=== PATIENT | female | born 1985 | race Caucasian/White ===

== ENCOUNTER → 2018-01-02 09:53 | Outpatient (CLI) | payer OTHER, SELFPAY ==
[2018-01-02 13:51] LABS: Basophils % 0.9 % (0.1-2.0); Eosinophils # 0.3 K/mm3 (0.0-0.4); Hematocrit 40.8 % (37.0-47.0); Hemoglobin 12.4 g/dL (12.2-16.2); Lymphocytes # 1.4 K/mm3 (0.7-4.5); Lymphocytes % 29.6 K/mm3 (10-50); Mean Corpuscular HGB Conc 30.4 g/dL (31.8-35.4); Mean Corpuscular Hemoglobin 27.7 pg (27.0-31.2); Mean Platelet Volume 7.6 fl (7.4-10.4); Monocytes # 0.3 K/mm3 (0.1-1.0); Monocytes % 6.9 % (1.7-9.3); Neutrophils # 2.7 K/mm3 (1.8-7.8); Neutrophils % 55.7 % (37.0-80.0); Platelet Count 297 K/mm3 (142-424); Red Blood Count 4.48 M/mm3 (4.20-5.40); Red Cell Distribution Width 13.7 % (11.5-17.5); White Blood Count 4.8 K/mm3 (4.8-10.8)
[2018-01-02 15:09] LABS: Erythrocyte Sedimentation Rate 10 mm/hr (0-20)
[2018-01-02 15:15] LABS: Alanine Aminotransferase 41 U/L (12-78); Albumin Level 4.2 gm/dL (3.4-5.0); Albumin/Globulin Ratio 1.2 (1.1-1.8); Alkaline Phosphatase 43 U/L (46-116); Anion Gap 16.1 mEq/L (5-15); Aspartate Amino Transferase 24 U/L (15-37); Bilirubin,Total 0.1 mg/dL (0.2-1.0); Blood Urea Nitrogen 12 mg/dL (7-18); Calcium 8.8 mg/dL (8.5-10.1); Carbon Dioxide 25 mmol/L (21.0-32.0); Chloride 103 mmol/L (98-107); Chol/HDL Ratio 2.8 (1-3.5); Cholesterol 186 mg/dL (140-200); Creatinine,Serum 0.78 mg/dL (0.55-1.02); Estimated Glomerular Filt Rate 86 ml/min (>60); GFR (African American) 104 ML/MIN (>60); Globulin 3.6 gm/dl (1.3-3.2); Glucose 82 mg/dL (74-106); HDL Cholesterol 66 mg/dL (29-89); LDL Cholesterol 104 mg/dL (0-130); Potassium 4.1 mmoL/L (3.5-5.1); Sodium 140 mmol/L (136-145); T4 (Thyroxine) 7.7 ug/dl (4.7-13.3); Thyroid Stimulating Hormone 1.48 uIU/ml (0.358-3.740); Total Protein,Serum 7.8 gm/dL (6.4-8.2); Triglycerides 81 mg/dL (30-200); VLDL Cholesterol 16 mg/dL (0-40)
[2018-01-02 15:16] LABS: C-Reactive Protein < 0.2 mg/L (0.0-0.9)
[2018-01-03 08:26] LABS: RA Latex Turbid. <10.0 IU/mL (0.0-13.9)
[2018-01-03 18:31] LABS: Vitamin D 25 Hydroxy 27.9 ng/mL (30.0-100.0)
[2018-01-05 12:32] LABS: Anti-Jo-1 <0.2 AI (0.0-0.9); Anti-Smith Antibody <0.2 AI (0.0-0.9); Antichromatin Antibodies <0.2 AI (0.0-0.9); Antiscleroderma-70 Antibodies <0.2 AI (0.0-0.9); RNP Antibodies <0.2 AI (0.0-0.9); Sjogren's Anti-SS-A <0.2 AI (0.0-0.9); Sjogren's Anti-SS-B <0.2 AI (0.0-0.9)
[2018-01-06 06:24] LABS: Anti-Centromere B Antibodies <0.2 AI (0.0-0.9); Anti-DNA (DS) Ab Qn 1 IU/mL (0-9)
== END ==
PROVIDERS: Visit Provider Nurse Practitioner Family
DX: R25.2 Cramp and spasm (principal); Z13.220 Encounter for screening for lipoid disorders
CPT/HCPCS: 80053; 80061; 82652; 84436; 84443; 85025; 85651; 86038; 86140; 86431

== ENCOUNTER → 2019-01-15 11:25 | Outpatient (CLI) | payer BC, SELFPAY | PROVIDERS: Visit Provider Nurse Practitioner Family | DX: R39.89 Other symptoms and signs involving the genitourinary system (principal) | CPT/HCPCS: 87086 ==

== ENCOUNTER → 2019-02-05 15:13 | Outpatient (CLI) | payer BC, SELFPAY ==
--- NOTE | 2019-02-05 15:15 | US_ITS ---
US transvaginal Ordering Physician: Chaz Desouza APRN Patient Age: 33 years: Female HISTORY: ITS.REASON: right adnexal cyst seen on CT right-sided back pain. Recent CT [place] showed ovarian cysts Right-sided back pain . TECHNIQUE: Transvaginal pelvic ultrasound COMPARISON :None at this facility FINDINGS Retroverted retroflexed uterus. Uterus measures 7.8 cm length as 1.5 cm has 5.3 cm wide. Endometrium measures up to 1.1 cm thickness. Previous no focal mass or fibroid within uterus. Ovaries appear within normal limits, with small follicles bilaterally. Most prominent follicles measuring over 6 mm size. No dominant cyst in either ovary.. However there is some fluid at the cul-de-sac most evident just adjacent to the right right ovary. Possible reflects a recent rupture of cyst seen on CT. Right ovary measures 3.6 cm x 1.85 cm x 2.1 cm.. Left ovary.. 2.6 cm x 1.1 cm x 1 cm. Cul-de-sac fluid noted. Reflect recent cyst rupture. IMPRESSION: 1. Retroverted retroflexed uterus. Normal size. Slight Generous Endometrial stripe 1.1 cm. 2. Ovaries appear normal in size with small follicles bilaterally. None measuring over 6 mm size. Right ovary is larger than left Measures 3.6 cm. 3.There is a small amount of fluid in the cul-de-sac to most evident to the right. This could reflect rupture of the cyst seen on recent CT.
== END ==
PROVIDERS: PCP Nurse Practitioner Family; Visit Provider Nurse Practitioner Family
DX: N94.9 Unspecified condition associated with female genital organs and menstrual cycle (principal)
CPT/HCPCS: 76830

== ENCOUNTER 2020-10-20 12:21 | Emergency (ER) | payer BC, SELFPAY ==
[2020-10-20 13:08] VITALS: BP 138/98; PULSE 63; RESP 16; TEMP 37.3; O2SAT 100; BMI 27.8
--- NOTE | 2020-10-20 13:16 | HMH.EDUTC ---
[facility] [place] Clinical Impression: Encounter for laboratory testing for COVID-19 virus Disposition: Home, Self-Care Condition on Discharge: Good Instructions: DI for COVID-19 (Suspected or Confirmed ), Coronavirus Disease 2019, COVID-19: Testing and Tracing, Preventing the Spread of Coronavirus Discharge Instructions Additional Instructions: *Monitor Temp, Over the counter Motrin or Tylenol as directed/as needed Tylenol every 4 hours and Motrin every 6 hours (as long as your family doctor has told you that you can take it) for fever or pain. and straight to ER if unable to lower temp less than 101.0 after medication given *Warm salt water gargles may help to soothe the throat *Throat Lozenges *Warm fluids like tea with honey may help to soothe the throat *Sleep elevated *Humidifier/Vaporizer *Flonase 2 sprays in each nostril daily but be aware that it may take 2-3 days before you notice improvement Follow up IMMEDIATELY for new or worsening symptoms or no Noticeable improvement over the next 48-72 hours. 911 for difficulty breathing or swallowing You were tested for today for COVID19 your test result should be back in the next 24-48 hours, you may call to the [facility] to see if your test results are back in the next 48 hours [phone] [facility] hours are 9am-9pm You was given a handout with instructions for Self Quarantine and Self isolation for while you wait on test results and what to do if they are positive If you are positive the Health Dept will be contacting you also Prescriptions: Brompheniramine/Pseudoephed/Dm [Bromfed Dm Cough Syrup] 5 - 10 ml PO Q46H #150 ml Transmission Status: Pending to [id number] Fluticasone Propionate [Flonase 50mcg nasal spray 16gm] 1 spr NS DAILY #1 bottle Transmission Status: Pending to [id number] Referrals: Chaz Desouza APRN [Primary Care Provider] - As needed Forms: Work/School Release Time of Disposition: 13:22 Medical Decision Making - Chris Inquiry Pt receiving controlled substance: No Chris was queried for this patient: No Vital Signs: 10/20/20 13:08 Temperature 99.2 F Temperature Source Oral Pulse Rate [Right] 63 Respiratory Rate 16 Blood Pressure [Right Arm] 138/98 H Blood Pressure Mean [Right Arm] 111 Blood Pressure Source [Right Arm] Automatic Cuff Blood Pressure Position [Right Arm] Sitting 02 Sat by Pulse Oximetry 100 Oxygen Delivery Method Room Air Orders (Tests/Meds): ORDERS Category Date Time Status Covid-19 Nasal PCR ([facility]) Routine Lab 10/20/20 12:50 [place] [facility] [place] - General Stated complaint: loss of smell and taste Time Seen by Provider: 10/20/20 13:16 Mode of Arrival: Ambulatory Source of Information: Patient Limitations: No Limitations Description of Symptoms (Recalled from Triage Doc. by RN): ptr c/o loss of taste and sinus headache HEENT Symptoms (Recalled from RN notes): No Resp Symptoms (Recalled from RN notes): No Skin Symptoms (Recalled from RN notes): No MS Symptoms (Recalled from RN notes): No Functional Status (Recalled from RN notes): na - History of Present Illness Provider Complaint: Patient state that she feels like she may have a sinus headache States that she has been feeling achy and had a headache with some nasal congestion State that today she wasnt able to taste anything so she come in to get tested for COVID - Related Data Home Medications Medication Instructions Recorded Confirmed multivitamin,dm-pdba-zrozezcj 1 tab PO DAILY 01/15/19 02/25/19 Previous Rx's Medication Instructions Recorded Brompheniramine/Pseudoephed/Dm 5 - 10 ml PO Q46H #150 ml 10/20/20 [Bromfed Dm Cough Syrup] Fluticasone Propionate [Flonase 1 spr NS DAILY #1 bottle 10/20/20 50mcg nasal spray 16gm] Allergies Allergy/AdvReac Type Severity Reaction Status Date / Time No Known Allergies Allergy Verified 02/25/19 13:14 - Worker's Comp Is this a Worker's Comp case?: No [facility] Hist
[2020-10-20 13:26] VITALS: BP 134/70; PULSE 70; RESP 16; TEMP 37.3; O2SAT 98
--- NOTE | 2020-10-20 21:22 | PC.NURSE ---
notified pt of positive covid results. went to voicemail
== END 2020-10-20 13:27 | disposition home or self-care (01) ==
PROVIDERS: Emergency Provider Nurse Practitioner; PCP Nurse Practitioner Family
DX: U07.1 COVID-19 (principal)
CPT/HCPCS: 99202; G0463; U0003

== ENCOUNTER 2020-10-29 10:47 | Emergency (ER) | payer BC, SELFPAY ==
[2020-10-29 11:00] VITALS: BP 139/75; PULSE 77; RESP 22; TEMP 36.9; O2SAT 98; BMI 27.8
--- NOTE | 2020-10-29 11:24 | HMH.EDUTC ---
[facility] [place] Disposition Clinical Impression: Anxiety Disposition: Home, Self-Care Condition on Discharge: Good Instructions: DI for Anxiety -- Adult, Hydroxyzine Additional Instructions: Take medication as prescribed for Anxiety If symptoms persist make sure to follow up with your Family Doctor for further treatment and evaluation Straight to ER if any worsening of symptoms or life threatening symptoms Prescriptions: hydrOXYzine pamoate [Vistaril] 25 mg PO BID PRN #10 cap PRN Reason: Anxiety Transmission Status: Received by [id number] Referrals: PCP,No [Primary Care Provider] - As needed Time of Disposition: 12:22 Medical Decision Making - Chris Inquiry Pt receiving controlled substance: No Chris was queried for this patient: No Vital Signs: 10/29/20 11:00 10/29/20 12:35 Temperature 98.4 F 98.4 F Temperature Source Oral Pulse Rate 77 Pulse Rate [Right Brachial] 77 Respiratory Rate 22 22 Blood Pressure 139/75 Blood Pressure [Left Arm] 139/75 Blood Pressure Mean [Left Arm] 96 Blood Pressure Source [Left Arm] Automatic Cuff Blood Pressure Position [Left Arm] Sitting 02 Sat by Pulse Oximetry 98 Oxygen Delivery Method Room Air - Radiology Data #1 Image(s): Chest Image Reviewed: Yes I reviewed the patient's radiology image w/the ED provider Preliminary Findings: Normal/NAD Medical Decision Narrative: Patient reports that she has been off work for about 10 days due to being dx with COVID States that she started to feel a little anxious and felt short of breath states that she wasnt sure if she was SOA or having some anxiety [facility] [place] HPI - General Stated complaint: covid +, soa Time Seen by Provider: 10/29/20 11:24 Mode of Arrival: Ambulatory Source of Information: Patient Limitations: No Limitations Description of Symptoms (Recalled from Triage Doc. by RN): PATIENT C/O SOA. 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 and she started feeling a little anxiety and felt short of breath States that she has never had anxiety before and not sure if she may be having some anxiety or really short of breath so she came in to get checked - Related Data Home Medications Medication Instructions Recorded Confirmed multivitamin,hy-wbii-cfbuecao 1 tab PO DAILY 01/15/19 02/25/19 Previous Rx's Medication Instructions Recorded Brompheniramine/Pseudoephed/Dm 5 - 10 ml PO Q46H #150 ml 10/20/20 [Bromfed Dm Cough Syrup] Fluticasone Propionate [Flonase 1 spr NS DAILY #1 bottle 10/20/20 50mcg nasal spray 16gm] hydrOXYzine pamoate [Vistaril] 25 mg PO BID PRN #10 cap 10/29/20 Allergies Allergy/AdvReac Type Severity Reaction Status Date / Time No Known Allergies Allergy Verified 02/25/19 13:14 - Worker's Comp Is this a Worker's Comp case?: No [facility] History - Hepatitis A Screen Drug use history?: No High risk sexual behaviors?: No History of sexually transmitted infection?: No Currently employed?: No Childcare worker?: No Do you have indoor plumbing?: Yes Do you have electricity?: Yes Attestation statement:: This patient has been screened for Hepatitis A risk factors. I have reviewed the patient's past medical history: Yes Medical History: Denies:: Diabetes Mellitus Type 1, Diabetes Mellitus Type 2, Internal Pacemaker, Pulmonary Embolism, Transient Ischemic Attacks (TIA) Other Medical History: Reports: Other Comment: Leg Cramps Other Surgeries: Yes: No Previous Surgery, Hernia Repair, Other. No: Pacemaker Amputation: No Fractures: No Comment: [place] teeth - Social Histor
--- NOTE | 2020-10-29 11:28 | XR_ITS ---
PROCEDURE: XR CHEST PORTABLE CLINICAL HISTORY: shortness of breath COMPARISON: No exams were available for comparison FINDINGS: The cardiomediastinal silhouette and pulmonary vascularity are within normal limits. The lungs are clear without infiltrates, suspicious nodules, or pleural effusions. There is elevation left hemidiaphragm with dilated splenic flexure of the colon seen just beneath the left hemidiaphragm. No acute bony abnormalities. IMPRESSION: No acute findings. Dictated by: Dr. Jose Mckoy MD 10/29/2020 12:25 Dr. Jose Mckoy MD in [place] 10/29/2020 12:25
[2020-10-29 12:35] VITALS: BP 139/75; PULSE 77; RESP 22; TEMP 36.9; O2SAT 98
== END 2020-10-29 12:36 | disposition home or self-care (01) ==
PROVIDERS: Emergency Provider Nurse Practitioner
DX: F41.0 Panic disorder [episodic paroxysmal anxiety] (principal); Z86.16 Personal history of COVID-19
CPT/HCPCS: 71045; 99202; G0463

== ENCOUNTER → 2022-05-23 06:12 | Outpatient (CLI) | payer BC, SELFPAY ==
[2022-05-22 18:00] LABS: Basophils # 0.1 K/mm3 (0-0.2); Eosinophils # 0.5 K/mm3 (0.0-0.4); Eosinophils % 6.8 % (0.1-12.0); Hematocrit 34.7 % (37.0-47.0); Lymphocytes # 1.7 K/mm3 (0.7-4.5); Lymphocytes % 22.9 % (10-50); Mean Corpuscular HGB Conc 31.7 g/dL (31.8-35.4); Mean Corpuscular Hemoglobin 25.8 pg (27.0-31.2); Mean Corpuscular Volume 81.4 fl (81-99); Mean Platelet Volume 8.3 fl (7.4-10.4); Monocytes # 0.4 K/mm3 (0.1-1.0); Monocytes % 5.8 % (1.7-9.3); Neutrophils # 4.8 K/mm3 (1.8-7.8); Neutrophils % 63.5 % (37.0-80.0); Platelet Count 329 K/mm3 (142-424); Red Blood Count 4.26 M/mm3 (4.20-5.40); Red Cell Distribution Width 16.7 % (11.5-17.5); White Blood Count 7.6 K/mm3 (4.8-10.8)
[2022-05-22 19:29] LABS: Alanine Aminotransferase 23 U/L (12-78); Albumin Level 4.3 g/dl (3.5-5.0); Albumin/Globulin Ratio 1.5 (1.1-1.8); Alkaline Phosphatase 49 U/L (38-126); Aspartate Amino Transferase 33 U/L (14-36); Blood Urea Nitrogen 13 mg/dl (7-17); Carbon Dioxide 25 mmol/L (22.0-30.0); Chloride 107 mmol/L (98-107); Cholesterol 183 mg/dl (140-200); Estimated Glomerular Filt Rate 81 ml/min (>60); GFR (African American) 98 ML/MIN (>60); Globulin 2.8 g/dL (1.3-3.2); Glucose 97 mg/dl (74-100); HDL Cholesterol 62 mg/dl (40-60); Sodium 137 mmol/L (136-145); Total Protein,Serum 7.1 g/dl (6.3-8.2); Triglycerides 112 mg/dl (30-150); VLDL Cholesterol 22 mg/dL (0-40)
[2022-05-22 19:41] LABS: Direct LDL Cholesterol 84.99 mg/dL (100-129)
[2022-05-22 19:53] LABS: Bilirubin,Total < 0.1 mg/dl (0.2-1.3)
[2022-05-22 20:00] LABS: Thyroid Stimulating Hormone 1.17 uIU/mL (0.465-4.68)
[2022-05-22 20:19] LABS: Vitamin B12 517 pg/mL (239-931)
[2022-05-22 21:04] LABS: Anion Gap 9.8 mEq/L (5-15); Potassium 4.8 mmoL/L (3.5-5.1)
[2022-05-23 11:35] LABS: Iron 24 ug/dL (37-170)
[2022-05-23 11:45] LABS: Total Iron Binding Capacity 412 ug/dL (265-497)
[2022-05-23 12:12] LABS: Ferritin 7.54 ng/ml (6.24-137)
== END ==
PROVIDERS: PCP Physician Assistant; Visit Provider Physician Assistant
DX: R53.83 Other fatigue (principal); R89.9 Unspecified abnormal finding in specimens from other organs, systems and tissues; F41.9 Anxiety disorder, unspecified; E55.9 Vitamin D deficiency, unspecified; G43.909 Migraine, unspecified, not intractable, without status migrainosus
CPT/HCPCS: 80053; 80061; 82306; 82607; 82728; 83540; 83550; 84443; 85025

== ENCOUNTER 2023-01-14 16:30 | Emergency (ER) | payer BC, SELFPAY ==
[2023-01-14 17:20] VITALS: BP 147/97; PULSE 78; RESP 18; TEMP 36.9; O2SAT 100; BMI 28.3
[2023-01-14 17:34] VITALS: BP 147/97; PULSE 78; RESP 18; TEMP 36.9; O2SAT 100
[2023-01-14 17:34] LABS: UTC Strep Screen (Rapid) Positive (Negative)
--- NOTE | 2023-01-14 17:57 | EXP.UTC ---
Discharge Plan Disposition Patient Disposition: Home, Self-Care Condition: Good Prescriptions Prescriptions: New amoxicillin 875 mg tablet 875 mg PO Q12H Qty: 20 0RF Referrals Follow up/Referrals: Provider,Referral, MD [Primary Care Provider] - See instructions Activity Restrictions/Add. Instructions Additional Instructions/Restrictions: *Monitor Temp, Over the counter Motrin or Tylenol as directed/as needed Tylenol every 4 hours and Motrin every 6 hours (as long as your family doctor has told you that you can take it) for fever or pain. and straight to ER if unable to lower temp less than 101.0 after medication given *Warm salt water gargles may help to soothe the throat *Throat Lozenges? *Warm fluids like tea with honey may help to soothe the throat? *Sleep elevated *Humidifier/Vaporizer *If you did not take Penicillin shot or was unable to, start taking antibiotic immediately and make sure that you take it for the FULL length of time although you should start to feel better in 24-48 hours *change toothbrush and toothpaste 24-48 hours after starting to take antibiotics so you do not reinfect yourself Monitor Temp. Tylenol and/or Ibuprofen as needed. ER if fever is no less than 101 despite alternating Tylenol and Ibuprofen * Encourage fluids, water, Gatorade, powerade, pedialyte if infant/toddler/or child *Cold fluids, popsicles and ice cream may feel good on his throat Follow up IMMEDIATELY for new or worsening symptoms or no Noticeable improvement over the next 48-72 hours. 911 for difficulty breathing or swallowing Clinical Impressions Clinical Impression: Strep throat Stand Alone Forms Stand Alone Forms: Work/School Release Instructions Patient Instructions: DI for Strep Throat, Strep Throat Discharge ED Provider[place] [facility] [place] General Stated complaint: sore throat, Mode of Arrival: Ambulatory Source of Information: Patient Limitations: No Limitations Time Seen by Provider: 01/14/23 17:57 Description of Symptoms (Recalled from Triage Doc. by RN): PATIENT C/O SORE THROAT, RIGHT EAR PAIN, TEETH SENSITIVITY, SWOLLEN LYMPH NODES ON NECK, AND TONSIL STONE THAT STARTED LAST NIGHT HEENT Symptoms (Recalled from RN notes): Yes Resp Symptoms (Recalled from RN notes): No Skin Symptoms (Recalled from RN notes): No MS Symptoms (Recalled from RN notes): No Functional Status (Recalled from RN notes): WNL History of Present Illness Provider Complaint: Patient states that she started feeling bad last night States that she has been having sore throat that feels dry and scratchy States that she has been having pain in her right ear Feels like her lymph nodes are swollen and over all not feeling well 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 Medical History (Updated 01/14/23 @ 18:02 by Lola Vinson APRN) Anxiety Migraine headache Vitamin D insufficiency Social History Smoking Status: Never smoker alcohol intake: never substance use type: denies use current occupational status: other Travel in the last 8 weeks: None ROS Obtained: Yes All systems reviewed & no additional complaints except as documented and Yes Systems reviewed as appropriate & no additional complaints except as documented Constitutional Constitutional: Reports system reviewed and no additional complaints, except as documented and Reports as per HPI Eyes Eyes: Reports system reviewed and no additional comp
== END 2023-01-14 18:12 | disposition home or self-care (01) ==
PROVIDERS: Emergency Provider Nurse Practitioner
DX: J02.0 Streptococcal pharyngitis (principal); H92.01 Otalgia, right ear
CPT/HCPCS: 87880; 99212; 99214; G0463

== ENCOUNTER 2023-07-26 08:03 | Emergency (ER) | payer BC, SELFPAY ==
[2023-07-26 08:10] VITALS: BP 131/94; PULSE 60; RESP 22; TEMP 36.7; O2SAT 100; BMI 27.1
[2023-07-26 08:22] VITALS: BP 131/94; PULSE 60; RESP 22; TEMP 36.7; O2SAT 100
--- NOTE | 2023-07-26 08:24 | EXP.UTC ---
Discharge Plan Disposition Patient Disposition: Home, Self-Care Condition: Good Prescriptions Prescriptions: New amoxicillin 875 mg tablet 875 mg PO BID Qty: 20 0RF prednisone 20 mg tablet 20 mg PO BID Qty: 10 0RF fluconazole 150 mg tablet 150 mg PO Q3D PRN (Reason: yeast infection) Qty: 2 0RF Referrals Follow up/Referrals: Provider,Monet, [Primary Care Provider] - See instructions Vern Ponce III, MD [Referring] - See instructions Vern Ponce III, MD [Staff Physician] - See instructions Clinical Impressions Clinical Impression: Tonsillitis Instructions Patient Instructions: DI for Pharyngitis/Tonsillopharyngitis -- Adult Discharge ED Provider: Ashley Gonsalves [facility] [place] General Stated complaint: sore throat,headache,drainage Mode of Arrival: Ambulatory Source of Information: Patient Limitations: No Limitations Time Seen by Provider: 07/26/23 08:24 Description of Symptoms (Recalled from Triage Doc. by RN): PATIENT C/O SORE THROAT, EAR/NECK PAIN, DRAINAGE, HEADACHE, AND TONSIL STONE X 2 DAYS HEENT Symptoms (Recalled from RN notes): Yes Resp Symptoms (Recalled from RN notes): No Skin Symptoms (Recalled from RN notes): No MS Symptoms (Recalled from RN notes): No Functional Status (Recalled from RN notes): WNL History of Present Illness Provider Complaint: Sore throat, congestion, headache X 3-4 days. Swelling on right side of throat. H/O tonsil stones. Was able to pop it out last night but still quite irritated. Onset (ago): day(s) (3) Relieving factors: none Exacerbating factors: none Associated symptoms: denies other symptoms Treatments prior to arrival: none Related Data Previous Rx's Medication Instructions Recorded amoxicillin 875 mg tablet 875 mg PO BID #20 tabs 07/26/23 fluconazole 150 mg tablet 150 mg PO Q3D PRN yeast infection 07/26/23 2 doses #2 tabs prednisone 20 mg tablet 20 mg PO BID #10 tabs 07/26/23 Allergies Allergy/AdvReac Type Severity Reaction Status Date / Time No Known Allergies Allergy Verified 05/22/22 13:34 Worker's Comp Is this a Worker's Comp case?: No [facility] Disclaimer: The information contained in this section may have been updated after the patient was seen, as this information can be updated by other users. Medical History (Updated 07/26/23 @ 08:35 by BAUTISTA Royal) Anxiety Migraine headache Vitamin D insufficiency Social History Smoking Status: Never smoker alcohol intake: never substance use type: denies use current occupational status: other Travel in the last 8 weeks: None ROS Obtained: Yes All systems reviewed & no additional complaints except as documented Constitutional Constitutional: Reports headache(s) ENT Ears, Nose, Mouth, and Throat: Reports headache(s) and Reports sore throat Neurologic Neurologic: Reports headache(s) Physical Exam General General appearance: alert and in no apparent distress Head Head exam: atraumatic, normocephalic and normal inspection Eye Eye exam: Present normal appearance, PERRL and EOMI ENT ENT exam: Present normal exam, mucous membranes moist, TM's normal bilaterally and normal external ear exam Expanded ENT Exam Throat exam: Present tonsillar erythema and tonsillomegaly Neck Neck exam: Present normal inspection, full ROM and trachea midline; Absent meningismus or lymphadenopathy Chest Chest inspection: Present normal inspection and symmetric chest wall rise; Absent tenderness Respiratory Respiratory exam: Present normal lung sounds bilaterally; Absent respiratory distress Cardiovascular Cardiovascular exam: Present regular rate and normal rhythm; Absent JVD Abdominal Exam Abdominal exam: Present soft and normal bowel sounds; Absent distention, tenderness or guarding Extremities Exam Extremities exam: Present normal inspection, full ROM and normal capillary refill; Absent calf tenderness Back Exam Back exam: Present normal inspection; Absen
[2023-07-26 08:25] LABS: UTC Strep Screen (Rapid) Negative (Negative)
== END 2023-07-26 08:39 | disposition home or self-care (01) ==
PROVIDERS: Emergency Provider Physician Assistant
DX: J03.90 Acute tonsillitis, unspecified (principal); R51.9 Headache, unspecified; F41.9 Anxiety disorder, unspecified; E55.9 Vitamin D deficiency, unspecified; J35.8 Other chronic diseases of tonsils and adenoids
CPT/HCPCS: 87880; 99212; 99214; G0463

== ENCOUNTER → 2023-10-08 07:55 | Outpatient (CLI) | payer BC, SELFPAY ==
--- NOTE | 2023-10-08 08:01 | US_ITS ---
FINAL REPORT TECHNIQUE: Ultrasound images of the abdomen were obtained. CLINICAL HISTORY: ABD PAIN COMPARISON: None FINDINGS: The pancreas is obscured by bowel gas. The liver is remarkable for mild fatty infiltration. The gallbladder is unremarkable. The common duct is normal. The right kidney measures 11.21 cm in length and is normal in echogenicity without hydronephrosis. The left kidney measures 11 cm in length and is normal in echogenicity without hydronephrosis. The spleen is unremarkable. The aorta is normal in caliber. The vena cava is unremarkable. IMPRESSION: Normal ultrasound abdomen. The pancreas is somewhat obscured by overlying bowel gas. Reviewed, Interpreted and Dictated by Davide Alarcon MD Transcribed by Sharon Willson Authenticated and [facility]
== END ==
LOC: RAD 07:56
PROVIDERS: PCP Physician Assistant; Visit Provider Nurse Practitioner Family
DX: R10.9 Unspecified abdominal pain (principal)
CPT/HCPCS: 76700

== ENCOUNTER 2023-11-06 16:59 | Outpatient (CLI) | payer BC, SELFPAY | END 2023-11-06 23:59 | LOC: RT 17:00 | PROVIDERS: PCP Nurse Practitioner Family; Visit Provider Nurse Practitioner Family | DX: R07.9 Chest pain, unspecified (principal); R00.2 Palpitations | CPT/HCPCS: 93225 ==

== ENCOUNTER 2023-11-17 06:20 | Outpatient (CLI) | payer BC, SELFPAY ==
--- NOTE | 2023-11-17 | CA_ITS ---
APPROVED REPORT Exam: Exercise Treadmill Technologist: Mayra Case, Ht: 5 ft 7 in Wt: 176 lbs BSA: 1.91 m2 HR: 67 bpm BP: 140/93 mmHg Rhythm: NSR Medical History Medications: Ferrous sulfate,,,,, Valsartan,,,,, Cardiac Risk Factors: HTN, FHX of CAD Stress Test Details Test: Jay HR Resting HR: 81 bpm Max Heart Rate (APMHR): 182 bpm Max HR Achieved: 156 bpm Target HR (85% APMHR): 155 bpm % of APMHR: 86 Recovery HR: 148 bpm HR response to stress: Normal HR response to stress BP Resting BP: 142.0/98 mmHg Max BP: 183/105 mmHg Recovery BP: 129.0/78.0 mmHg BP response to stress: Normal blood pressure response to stress. ECG Resting ECG: NSR Stress EC mm horizontal ST depression Arrhythmia: Frequent PVCs, bigeminy Recovery ECG: Return to baseline within 3 minutes of recovery Recovery Arrhythmia: Occasional PVCs Clinical Exercise duration: 09:15 min Highest Stage Achieved: Exercise capacity: 10.1 METs Overall Exercise Capacity for Age: Average Stress ECG Conclusion During jay protocol patient walked 9 minutes, 15 seconds. She achieved a total of 10.1 METS. She has average exercise capacity compared to age and sex and matched peers. She has normal HR and BP response to exercise. Ectopy: Brief run of Bigeminy resolved at peak stress, occasional PVCs Symptoms: Patient expirenced SOB and chest pressure ST changes: [address] depression Conclusion: Average exercise capacity. ECG at peak stress demonstrates possible ischemia. Myoview images are reported separately. Test Summary REST . . . . . . . Sitting REST . . . . . . . Standing REST 11:26 0.0 1.2 81 . 142/ 98 . . Stage 1 01:00 10.0 1.7 99 . . . . Stage 1 02:00 10.0 1.7 107 . . . . Stage 1 03:00 10.0 1.7 109 . 150/ 85 . . Stage 2 01:00 12.0 2.5 138 . . . . Stage 2 02:00 12.0 2.5 142 . . . . Stage 2 03:00 12.0 2.5 149 . 160/100 . . Stage 3 01:00 14.0 3.4 152 . . . . Stage 3 02:00 14.0 3.4 153 . . . . Stage 3 03:00 14.0 3.4 154 . . . . Stage 4 00:15 16.0 4.2 155 . . . Stop exercise at 09:15 RECOVERY 01:00 0.0 0.0 124 . . . . RECOVERY 02:00 0.0 0.0 108 . 183/105 . . RECOVERY 03:00 0.0 0.0 105 . 129/ 78 . . RECOVERY 04:00 0.0 0.0 97 . 141/ 91 . . RECOVERY 04:01 0.0 0.0 97 . 141/ 91 . . Electronically signed by : Kori Jackson MD 11/19/2023 12:08:02
--- NOTE | 2023-11-17 06:31 | NM_ITS ---
APPROVED REPORT Exam: Nuclear Stress Test Indication: DYSRHYTHMIA, HTN, FM HX, C.P., SOB, PALPITATIONS, DIZZINESS Patient Location: Outpatient Stress Tech: Mayra Case ND Tech:Brigette Duran, NELLIE RT (R)(N)(M) Ht: 5 ft 8 in Wt: 175 lbs Bra Size: B HR: 67 bpm BP: 140/93 mmHg BSA: 1.93 m2 TID: 1.07 BMI: 26.6 History: DYSRHYTHMIA, HTN, FM HX, C.P., SOB, PALPITATIONS, DIZZINESS Procedure: Patient exercised on Rico protocol 9:15 minutes and sec, resting heart rate 67 bpm, resting blood pressure 140/93 mmHg, with exercise maximum heart rate achived was 156 bpm which is 100 % of the maximum predicted heart rate and blood pressure was 183/105 mmHg. Test was stopped due to FATIQUE. Patient denied any complaint of chest pain. Patient has Average exercise capacity, achieved 10.1 METs of workload on treadmill, the blood pressure response to exercise was normal. Cardiac Stress and Resting SPECT Images: Cardiac Stress and Resting SPECT images were obtained using technetium 99m Myoview 29.8 mCi stress and 10.39 mCi at rest. Resting and stress imaging in supine and prone positions demonstrate no definite evidence of fixed or reversible perfusion defects. Gated imaging demonstrates mild reduction in global and regional LV systolic function. LVEF is calculated at 49%. Of note, the LVEF on the stress test may be inaccurate due to frequent PVCs and bigeminy during stress testing. Conclusion: No definite evidence of fixed or reversible perfusion defects. Gated imaging demonstrates mild reduction in global and regional LV systolic function. LVEF is calculated at 49%. Of note, the LVEF on the stress test may be inaccurate due to frequent PVCs and bigeminy during stress testing. Of note, the patient developed frequent PVCs with bigeminy pattern at peak stress during the treadmill exercise stress test. Electronically signed by : Kori Jackson MD 11/19/2023 12:10:26
--- NOTE | 2023-11-17 08:32 | CA_ITS ---
APPROVED REPORT EXAM: Comprehensive 2D, Doppler, and color-flow Echocardiogram Inside Sales Coordinator: Jolene Estrella RT(R) Ht: 5 ft 8 in Wt: 175lbs BSA: 1.93 BP: 121/77 mmHg Indications: CP, dyspnea, HTN, hyperlipidemia, family history of HD, Abn EKG 2D Dimensions LA Volume 21.50 mL LA Volume Index 11.14 mL/m2 (M/F) 16-34 EF AP4 58.20 % GL Strain -19.9 % M-Mode Dimensions RVDd 2.25 cm (0.9-2.6) LA Diam 2.98 cm (1.9-4.0) LVDd 5.35 cm (3.5-5.7) LVDs 3.91 cm (3.5-5.7) IVSd 0.63 cm (0.6-1.1) PWd 0.53 cm (0.6-1.1) EF (Teich) 52.10% FS 26.90% EDV (Teich) 138.30 mL ESV (Teich) 66.30 mL LV Diastology E Decel Time 200 (160-240 msec) E/A Ratio 1.4 Mitral Valve MV E Max Glenn. 77.0 (40-130 cm/s) MV A Velocity 54.0 (40-130 cm/s) E/A Ratio 1.43 MV PHT 59.0 ms Left Ventricle The left ventricle is normal size. The left ventricular systolic function is normal. The left ventricular ejection fraction is within the normal range. There is normal left ventricular wall thickness. There is normal LV segmental wall motion. The left ventricular diastolic function is normal. LVEF is 55%. Right Ventricle The right ventricle is normal size. The right ventricular systolic function is normal. Atria The left atrium size is normal. The right atrium size is normal. There is no Doppler evidence of interatrial shunt. Aortic Valve The aortic valve is normal in structure. The aortic valve is trileaflet. There is no aortic valvular stenosis. No aortic regurgitation is present. Mitral Valve The mitral valve is normal in structure. No evidence of mitral valve stenosis. Trace mitral regurgitation. Tricuspid Valve The tricuspid valve leaflets are thin and pliable. Trace tricuspid regurgitation. There is insufficient TR jet to estimate RVSP. Pulmonic Valve The pulmonary valve is normal in structure. Trace pulmonic regurgitation. Great Vessels The aortic root is normal in size. The ascending aorta is normal in size. IVC is normal in size and collapses >50% with inspiration. Pericardium There is no pericardial effusion. Other Information Study Quality: Adequate Conclusion Normal biventricular systolic function. No significant valvular stenosis or regurgitation. Electronically signed by : Kori Jackson MD 11/18/2023 18:24:48
[2023-11-17] MEDS: ISOTOPE MYOVIEW (PER STUDY) 1 DOSE IV (11:13)
[2023-11-17] MEDS: SODIUM CHLORIDE 0.9% 10ML SYR (RAD ONLY) 10 ML IV ×2 (11:13)
== END 2023-11-17 23:59 ==
PROVIDERS: PCP Nurse Practitioner Family; Visit Provider Nurse Practitioner Family
DX: R06.00 Dyspnea, unspecified (principal); R42 Dizziness and giddiness; R94.31 Abnormal electrocardiogram [ECG] [EKG]; I10 Essential (primary) hypertension; I47.29 Other ventricular tachycardia; I49.1 Atrial premature depolarization; I49.3 Ventricular premature depolarization; R53.83 Other fatigue; Z83.79 Family history of other diseases of the digestive system
CPT/HCPCS: 78452; 93017; 93018; 93306; A9502